=== PATIENT | female | born 1985 | race Caucasian/White ===

== ENCOUNTER 2016-08-28 19:08 | Emergency (ER) | payer OTHER ==
--- NOTE | 2016-08-28 19:32 | CPEKG ---
Heart Rate: 96 RR Interval: 625 P-R Interval: 136 QRSD Interval: 86 QT Interval: 364 QTC Interval: 460 P Deale: 55 QRS Deale: 85 T Wave Deale: -12 EKG Severity - ABNORMAL ECG - EKG Impression: SINUS RHYTHM EKG Impression: NONSPECIFIC T ABNORMALITIES, INFERIOR LEADS Electronically Signed By: Maribell Chavez 28-Aug-2016 20:10:43
[2016-08-28] MEDS ORDERED: ONDANSETRON 4 MG/2 ML VIAL ONE (19:35)
[2016-08-28] MEDS ORDERED: ONDANSETRON DISINTEGRATING 4 MG TAB PO ONE (19:39)
[2016-08-28 19:46] LABS: % IMMATURE GRANULYOCYTES 0.5 % (0.0-1.1); ABSOLUTE IMMATURE GRANULOCYTES 0.04 10^3/uL (0.00-0.10); ADD DIFF? NO; ADD MORPH? NO; ADD SCAN? NO; ATYPICAL LYMPHOCYTE FLAG 20 (0-99); FRAGMENT RBC FLAG 0 (0-99); HEMATOCRIT 44.1 % (38.0-47.0); HEMOGLOBIN 15.1 g/dL (12.6-16.3); LEFT SHIFT FLG 0 (0-99); LIPEMIA HEMOLYSIS FLAG 90 (0-99); MEAN CELL HEMOGLOBIN 31.5 pg (27.9-34.1); MEAN CELL HEMOGLOBIN CONCENTR. 34.2 g/dL (32.4-36.7); MEAN CELL VOLUME 91.9 fL (81.5-99.8); PLATELET CLUMPS FLAG 10 (0-99); PLATELET COUNT 238 10^3/uL (150-400); RED CELL DISTRIBUTION WIDTH 12.2 % (11.5-15.2)
[2016-08-28 19:56] LABS: ANION GAP 14 mEq/L (8-16); CALCIUM 9.5 mg/dL (8.5-10.4); CARBON DIOXIDE 18 mEq/l (22-31); CHLORIDE 103 mEq/L (97-110); CREATININE 0.8 mg/dL (0.6-1.0); GLOMERULAR FILTRATION RATE > 60; GLUCOSE 86 mg/dL (70-100); POTASSIUM 3.3 mEq/L (3.5-5.2); SODIUM 135 mEq/L (134-144)
--- NOTE | 2016-08-28 20:04 | EDPHY ---
H & P Time Seen by Provider: 08/28/16 19:19 HPI/ROS: CHIEF COMPLAINT: Chest pressure, nausea, shortness of breath HISTORY OF PRESENT ILLNESS: Patient is a 30-year-old female who presents emergency department with multiple complaints. She states she felt slightly "off" last night. She attributed to dehydration and not paying attention to her intake. Today while at the store she developed nausea, chest pressure and shortness of breath. She has no cough or fever. No recent travel. No leg pain or swelling. Patient has chronic cystitis but no new abdominal symptoms. Patient denied diaphoresis or other associated symptoms. REVIEW OF SYSTEMS: My complete review of systems is negative except as mentioned in the HPI. Past Medical/Surgical History: Includes chronic cystitis Past surgical history: Includes tonsillectomy Social history: Occasional alcohol and THC. No tobacco use. Smoking Status: Light smoker Physical Exam: Vitals noted GENERAL: No acute distress, alert. HEENT: Eyes normal to inspection, normal pharynx, no signs of dehydration. NECK: No thyromegaly, no lymphadenopathy, supple. RESPIRATORY: Clear to auscultation bilaterally, no rales, rhonchi or wheezing. CVS: Regular rate and rhythm, no rubs, murmurs, or gallops. ABDOMEN: Soft, nontender, nondistended, no organomegaly. BACK: Normal to inspection, no CVA tenderness. SKIN: Normal color, no rash, warm, dry. No pallor. EXTREMITIES: No pedal edema, no calf tenderness, no Homans sign or cords, no joint swelling. NEURO/PSYCH: Alert and oriented, flat affect, normal motor sensory exam. Constitutional: Initial Vital Signs Temperature (C) 36.2 C 08/28/16 19:18 Heart Rate 107 H 08/28/16 19:18 Respiratory Rate 20 08/28/16 19:18 Blood Pressure 141/96 H 08/28/16 19:18 O2 Sat (%) 100 08/28/16 19:18 O2 Delivery Mode Room Air Allergies/Adverse Reactions: ciprofloxacin [From Cipro] Allergy (Verified 08/28/16 19:21) gluten Allergy (Verified 08/28/16 19:21) Home Medications: Medication Instructions Recorded Bcp 08/28/16 Flonase Nasal [place] 08/28/16 Prelief 08/28/16 Medical Decision Making - Diagnostics EKG Interpretation: EKG shows normal sinus rhythm, normal rate, normal axis, normal intervals. There are no ST or T-wave abnormalities. EKG is normal as interpreted by me. Chest x-ray: Unremarkable. Please refer the dictated report. Imaging Results: Imaging Impressions Chest X-Ray 08/28/16 19:41 Impression: The chest is negative for acute cardiopulmonary abnormality. Imaging: I viewed and interpreted images myself ED Course/Re-evaluation: In the emergency department I discussed possible etiologies with the patient. I answered her questions. Laboratory studies, EKG and chest x-ray were ordered. EKG shows normal sinus rhythm, normal rate, normal axis, normal intervals. There are no ST or T-wave abnormalities. EKG is normal as interpreted by me. The chest x-ray: No acute disease. Please refer to the dictated report. Laboratory studies are notable for a low potassium at 3.3. The patient was given KCl 40 mEq orally. Her bicarb was mildly low. Her renal function is normal and chemistry is otherwise unremarkable. CBC is normal. Patient has elevated white count. No nitrates, leuk esterase or bacteria. I discussed the results with the patient. She states she always has elevated white count in her urine due to cystitis. She does not want antibiotic treatment for this. On recheck she was feeling better. She denies chest pain or shortness of breath. She had no abdominal pain. She was given warnings prior to leaving. She will return with worsening symptoms. Differential Diagnosis: My differential includes but is not limited to ACS, acute ND, dysrhythmia, electrolyte abnormality, sugar abnormality, diabetes, pneumonia, pulmonary embolus, thyroid disease - Data Points Laboratory Results: Laboratory Results 08/28/16 19:30 08/28/16 19:30 08/28/16 08/28/16 08/28/16 20:37 19:30 19:30 WBC 8.74 10^3/uL 10^3/uL (3.80-9.50) RBC 4.80 10^6/uL 10^6/uL (4.18-5.33) Hgb 15.1 g/dL g/dL (12.6-16.3) Hct 44.1 % % (38.0-47.0) MCV 91.9 fL fL (81.5-99.8) MCH 31.5 pg pg (27.9-34.1) MCHC 34.2 g/dL g/dL (32.4-36.7) RDW 12.2 % % (11.5-15.2) Plt Count 238 10^3/uL 10^3/uL (150-400) MPV 11.0 fL fL (8.7-11.7) Neut % (Auto) 47.1 % % (39.3-74.2) Lymph % (Auto) 41.8 % % (15.0-45.0) Potter % (Auto) 8.8 % % (4.5-13.0) Eos % (Auto) 1.3 % % (0.6-7.6) Baso % (Auto) 0.5 % % (0.3-1.7) Nucleat RBC Rel Count 0.0 % % (0.0-0.2) Absolute Neuts (auto) 4.13 10^3/uL 10^3/uL (1.70-6.50) Absolute Lymphs (auto) 3.65 10^3/uL H 10^3/uL (1.00-3.00) Absolute Monos (auto) 0.77 10^3/uL 10^3/uL (0.30-0.80) Absolute Eos (auto) 0.11 10^3/uL 10^3/uL (0.03-0.40) Absolute Basos (auto) 0.04 10^3/uL 10^3/uL (0.02-0.10) Absolute Nucleated RBC 0.00 10^3/uL 10^3/uL (0-0.01) Immature Gran % 0.5 % % (0.0-1.1) Immature Gran # 0.04 10^3/uL 10^3/uL (0.00-0.10) Sodium 135 mEq/L mEq/L (134-144) Potassium 3.3 mEq/L L mEq/L (3.5-5.2) Chloride 103 mEq/L mEq/L (97-110) Carbon Dioxide 18 mEq/l L mEq/l (22-31) Anion Gap 14 mEq/L mEq/L (8-16) BUN 11 mg/dL mg/dL (7-23) Creatinine 0.8 mg/dL mg/dL (0.6-1.0) Estimated GFR > 60 Glucose 86 mg/dL mg/dL (70-100) Calcium 9.5 mg/dL mg/dL (8.5-10.4) Troponin I < 0.012 ng/mL ng/mL (0-0.034) Urine Color PALE YELLOW Urine Appearance CLEAR Urine pH 6.0 (5.0-7.5) Ur Specific [place] 1.002 (1.002-1.030) Urine Protein NEGATIVE (NEGATIVE) Urine Ketones 1+ H (NEGATIVE) Urine Blood NEGATIVE (NEGATIVE) Urine Nitrate NEGATIVE (NEGATIVE) Urine Bilirubin NEGATIVE (NEGATIVE) Urine Urobilinogen NEGATIVE EU EU (0.2-1.0) Ur Leukocyte Esterase 2+ H (NEGATIVE) Urine RBC 1-3 /hpf /hpf (0-3) Urine WBC 5-10 /hpf H /hpf (0-3) Ur Epithelial Cells TRACE /lpf /lpf (NONE-1+) Urine Bacteria TRACE /hpf H /hpf (NONE SEEN) Ur Culture Indicated? INDICATED H (NI) Urine Glucose NEGATIVE (NEGATIVE) Medications Given: Discontinued Medications Sodium Chloride (Ns) 1,000 mls @ 0 mls/hr IV ONCE ONE PRN Reason: Wide Open Stop: 08/28/16 20:07 Last Admin: 08/28/16 19:45 Dose: 1,000 mls Ondansetron HCl (Zofran Odt) 4 mg PO EDNOW ONE Stop: 08/28/16 19:40 Last Admin: 08/28/16 19:43 Dose: 4 mg Potassium Chloride (Klor-Con) 40 meq PO EDNOW ONE Stop: 08/28/16 20:35 Last Admin: 08/28/16 20:59 Dose: 40 meq Departure - Departure Disposition: Home, Routine, Self-Care Clinical Impression: Weakness Chest pain Qualifiers: Chest pain type: unspecified Qualified Code(s): R07.9 - Chest pain, unspecified Condition: Good Instructions: Chest Pain (ED), Hypokalemia (ED) Additional Instructions: Return with increasing chest pain, shortness of breath, weakness, or any other concerns. Referrals: SYLVESTER Garces,. [Clinic] - As per Instructions Amaris Wise MD [place] [place] - As per Instructions
[2016-08-28] MEDS ORDERED: NS 1,000 ML IV ONE (20:06)
[2016-08-28 20:08] LABS: TROPONIN I < 0.012 ng/mL (0-0.034)
[2016-08-28 20:23] VITALS: RESP 16
[2016-08-28] MEDS ORDERED: POTASSIUM CL 10 MEQ TAB PO ONE (20:34)
[2016-08-28 20:47] LABS: COLOR PALE YELLOW; LEUKOCYTE ESTERASE,URINE 2+ (NEGATIVE); NITRITE,URINE NEGATIVE (NEGATIVE)
[2016-08-28 20:57] LABS: BACTERIA TRACE /hpf (NONE SEEN)
[2016-08-28 21:00] VITALS: O2SAT 98
[2016-08-28 22:02] VITALS: BP 121/76; PULSE 78; TEMP 97.9
== END 2016-08-28 21:59 | disposition home or self-care (01) ==
DX: R07.9 Chest pain, unspecified (principal); R53.1 Weakness; F17.200 Nicotine dependence, unspecified, uncomplicated
CPT/HCPCS: J2405

== ENCOUNTER 2017-10-02 09:22 | Emergency (ER) | payer OTHER ==
--- NOTE | 2017-10-02 09:41 | EDPHY ---
General Time Seen by Provider: 10/02/17 09:34 Narrative: CHIEF COMPLAINT: Right calf pain HISTORY OF PRESENT ILLNESS: Patient complains of right calf pain x1 week. Gradual onset. Constant duration. Described as a constant, crampy sharp pain in the calf. Does not extend anywhere else. It actually improved with ambulation and walking. Worsens at rest and with palpation. No numbness, tingling or weakness. No radiating pain. No redness, warmth or swelling. She is here because she is concerned about DVT due to oral contraceptive use. No recent travel, trauma or surgery. No history of venous thrombolic event. REVIEW OF SYSTEMS: Ten systems reviewed and are negative unless otherwise noted in the HPI PCP: Dr. Ana Ann SPECIALISTS: None PAST MEDICAL HISTORY: Fibromyalgia, chronic cystitis. Does take estrogen containing control pills. PAST SURGICAL HISTORY: No recent surgeries SOCIAL HISTORY: Nonsmoker FAMILY HISTORY: Noncontributory EXAMINATION General Appearance: Alert, no distress. Well-developed and well-nourished Head: normocephalic, atraumatic Eyes: Pupils equal and round, no conjunctival pallor or injection ENT, Mouth: Mucous membranes moist Neck: Normal inspection, supple, non-tender Respiratory: Lungs are clear to auscultation Cardiovascular: Regular rate and rhythm. No murmur Gastrointestinal: Abdomen is soft and nontender Back: non-tender, no bony abnormalities Neurological: A&O, nonfocal, normal gait Skin: Warm and dry, no rash. No petechiae or purpura. No erythema. Extremities: Tenderness to the right calf. No palpable cords. No pain with passive dorsiflexion. Extremities symmetry of the calves. Range of motion is symmetric. Psychiatric: Mood and affect normal DIFFERENTIAL DIAGNOSES: Including but not limited to muscular strain, dehydration, rhabdomyolysis, DVT, musculoskeletal pain MDM: 9:35 a.m. Right lower calf pain of the past week. It does appear to be intermittent. She has risk factors of estrogen containing oral contraceptive use. Clinically I do not feel she has a DVT, but I have ordered ultrasound to rule this in or out. I have also ordered laboratory study check her electrolytes and her CPK. She is resting comfortably in no acute distress with signs. She does not meet any SIRS criteria. She is well-appearing 10:15 a.m. Ultrasound of the right lower extremity is negative for DVT. Laboratory studies are pending. 10:40 a.m. Patient re-evaluated. She is requesting said the for pain. I offered Percocet she has declined. She would like to try ibuprofen 11:00 a.m. Laboratory studies are all within normal limits. I have re-evaluated the patient. We discussed the negative US findings. We discussed the possibility of muscular strain or spasms. I will treat her with muscle relaxant and recommend [id number] anti-inflammatories. We discussed follow up with primary care physician or Orthopedics for further workup and definitive care. We discussed ED precautions. She is comfortable this plan and discharged home stable condition. SUPERVISION: This patient was independently evaluated without direct involvement of or examination by the attending physician. - History Smoking Status: Former smoker - Objective Vital Signs: Initial Vital Signs Temperature (C) 98.1 F 10/02/17 09:27 Heart Rate 93 10/02/17 09:27 Respiratory Rate 16 10/02/17 09:27 Blood Pressure 136/99 H 10/02/17 09:27 O2 Sat (%) 97 10/02/17 09:27 O2 Delivery Mode Room Air Allergies/Adverse Reactions: ciprofloxacin [From Cipro] Allergy (Verified 10/02/17 09:26) gluten Allergy (Verified 10/02/17 09:26) Home Medications: Medication Instructions Recorded Bcp 08/28/16 Flonase Nasal [place] 08/28/16 Prelief 08/28/16 Cyclobenzaprine [Cyclobenzaprine 5 mg PO TID PRN #12 tab 10/02/17 HCl] Laboratory Results: Laboratory Results 10/02/17 10:15 10/02/17 10:15 Medications Given: Discontinued Medications Ibuprofen (Motrin) 600 mg PO EDNOW ONE Stop: 10/02/17 10:43 Last Admin: 10/02/17 11:20 Dose: 600 mg Departure - Departure Disposition: Home, Routine, Self-Care Clinical Impression: Right calf pain Condition: Good Instructions: Leg Cramps (ED), Muscle Cramp (ED) Additional Instructions: 1. OTC ibuprofen 400mg every 6 hours as needed 2. Flexeril as Rx as needed 3. Follow up with PCP for further care 4. Return to ED as discussed as needed Referrals: Ana Ann MD [Primary Care Provider] - As per Instructions Prescriptions: Cyclobenzaprine [Cyclobenzaprine HCl] 5 mg PO TID PRN #12 tab PRN Reason: Spasms
[2017-10-02 10:24] LABS: PLATELET COUNT 263 10^3/uL (150-400)
[2017-10-02 10:42] LABS: CREATINE KINASE 55 IU/L (0-156)
[2017-10-02] MEDS ORDERED: IBUPROFEN 600 MG TAB PO ONE (10:42)
[2017-10-02 11:22] VITALS: BP 110/82
== END 2017-10-02 11:21 | disposition home or self-care (01) ==
DX: M79.661 Pain in right lower leg (principal); Z87.891 Personal history of nicotine dependence